=== PATIENT | male | born 1995 | race Hispanic/Latino ===

== ENCOUNTER 2017-10-26 23:23 | Emergency (ER) | payer BC, MEDICAID, SELFPAY ==
[2017-10-26 23:26] VITALS: BP 152/90; PULSE 111; RESP 16; TEMP 37.4; O2SAT 97; BMI 29.7
--- NOTE | 2017-10-26 23:43 | EKG12_ITS ---
Test Reason : HIGH BLOOD SUGAR Blood Pressure : / mmHG Vent. Rate : 087 BPM Atrial Rate : 087 BPM P-R Int : 120 ms QRS Dur : 080 ms QT Int : 330 ms P-R-T Axes : 047 059 025 degrees QTc Int : 397 ms Normal sinus rhythm Normal ECG Confirmed by MAICOL PIMENTEL ([id number]), newspaper editor ROBBIE NULL ([id number]) on 10/31/2017 1:54:13 PM Referred By: NITA Confirmed By:MAICOL PIMENTEL
[2017-10-26] MEDS: 0.9% Normal Saline 1,000 ML 1000 ML IV (23:58)
[2017-10-27 00:08] LABS: Bacteria 0 SEEN /hpf (None Seen); Mucous, Urine 0 SEEN /hpf (<or=2+); Red Blood Cells-Urine 0 SEEN /hpf (0-5); Squamous Epithelial Cells - UA 0 SEEN /hpf (0-5); White Blood Cells 0 SEEN /hpf (0-5)
[2017-10-27 00:10] LABS: Color, Urine Straw (Yellow); Glucose, Dipstick 1000 mg/dl (Normal); Ketone-Dipstick Negative (Negative); Leukocyte Esterase-Dipstick Negative /ul (Negative); Nitrite-Dipstick Negative (Negative); Occult Blood-Urine Negative /ul (Negative); Protein-Dipstick 15 mg/dl (Negative); Urine Bilirubin Dipstick Negative (Negative); Urine Clarity Clear (Clear); Urine Urobilinogen Normal (Normal); Urine pH 6.5 (5.0 - 8.0)
--- NOTE | 2017-10-27 00:14 | ED.DCSUM_ITS ---
- ER Visit Summary Date of Service: 10/27/17 Chief Complaint: Hyperglycemia History of Present Illness: The patient is a 22 M states that due to insurance reasons he is lost his prescription drug coverage. He has been trying to make his insulin stretch. Is not sure exactly what insulin he is taking or how much. States over the past 4 days had increased thirst and increased urination. He notes decreased energy. Feels lightheaded. His boss took his blood sugar tonight and it read high. No reported fevers. Physical Examination: Heart rate 111 respiratory rate is 26 pulse ox 97% room air temperature 99.3 blood pressure 152 over's 90 Gen: Well-nourished well-developed Head: Normocephalic atraumatic Eyes: Perrl EOMI ENT: TMs clear no rhinorrhea dry mucous membranes Neck: Supple no lymphadenopathy no JVD nontender CVS: Tachycardic regular rate rhythm no murmurs normal S1-S2 Respiratory: No distress clear to auscultation bilaterally chest nontender patient has a quiet tachypnea Abdomen: Soft nontender nondistended normal bowel sounds no masses Back: Nontender Extremity: Nontender no edema Skin: Normal color no rash Neuro: alert orientated ?3 CN II-XII intact normal strength sensation reflexes gait cerebellar Psych: Normal affect normal mood Test Results: EKG shows a sinus rhythm at a rate of 87. Glucose is 515. Ketones are negative. Venous blood gas shows pH is 7.46. Emergency Department Course and Treatment: Patient received IV fluids and 10 units of insulin IV. According to the [facility] plan NovoLog Mix 70/30 FlexPen is a preferred medicine. Patient states that he was told that this is not covered. I will leave a message for social service director to contact him in the morning to see there is anything further we could do. I will write a prescription for 1. He states he will be getting an upcoming appointment with a new doctor. I have previously referred him to JUANY kumar from endocrinology here in town. He never made that appointment due to a waiting list. Impression: 1. Diabetic hyperglycemia This note was generated with [employer] dictation software. It may contain incorrect words, spelling, and punctuation that were not noted in review of the chart prior to signing ED Disposition - Plan for ED Patient: Disposition: Home or Assisted Living Chief Complaint: Hyperglycemia Instructions: ED Hyperglycemia Diabetic Prescriptions: Insulin Human 70/30 [Novolog Mix 70-30 Flexpen Syrn] 30 units SC BIDCM #1 flexpen Referrals: NOT,DEFINED [NON-STAFF] - Marcelina Coyne, TRANSPORTATION LEAD-C [Nurse Practitioner] - Additional Instructions: I will leave a message for our social service director to contact you tomorrow.
[2017-10-27] MEDS: 0.9% Normal Saline 1,000 ML 1000 ML IV (00:18)
[2017-10-27 00:31] LABS: Blood Gas Specimen Type VEN; O2 Delivery Device Room Air; SITE L Brachial; Time Given 15; VBG BASE EXCESS 0 mmol/L (-1.0-3.5); VBG Bicarbonate 24 mmol/L (22-26); VBG Oxygen Content 26 mmol/L (23-33); VBG PO2 66 mmHg (25-40); VBG SO2 93 % (50-70); VBG pCO2 36.6 mmHg (41-51); VBG pH 7.43 (7.32-7.42)
[2017-10-27 00:35] LABS: Absolute Lymphocyte Count 2.62 X10^3/ul (0.83-4.51); Absolute Neutrophil Count 3.2 X10^3/uL (2.0-7.7); Basophil# 0.03 X10^3/uL; Basophil% 0.5 % (0-1); Hematocrit 50.5 % (40-54); Hemoglobin 18.1 g/dl (13.0-16.5); Lymphocyte # 2.62 X10^3/ul (4.0); Lymphocyte % 40.8 % (19-41); Mean Corp Hgb Conc 35.8 g/gl (32-36); Mean Corpuscular Hgb 31.2 pg (27.0-32.0); Mean Corpuscular Volume 86.9 fL (80-94); Mean Platelet Vol. 10.1 fl (6.2-12.0); Monocyte# 0.53 X10^3/uL; Monocyte% 8.3 % (0-10); Neutrophil # 3.23 X10^3/uL (2.7-7.7); Neutrophil % 50.2 % (47-70); Platelet Count 259 K/mm3 (150-450); RBC Distribution Width CV 12.2 % (11.6-14.6); RBC Distribution Width SD 38.2 fl (35.1-43.9); Red Blood Count 5.81 M/mm3 (4.6-6.2); White Blood Count 6.4 K/mm3 (4.4-11.0)
[2017-10-27 00:36] LABS: POSITIVE COUNT NO; POSITIVE DIFFERENTIAL NO; POSITIVE MORPHOLOGY NO
[2017-10-27 00:44] LABS: ALB/GLOB Ratio 1.4 RATIO (0.9-2.4); AST(SGOT) 26 U/L (15-37); Alanine Aminotransfer ALT/SGPT 84 U/L (16-61); Albumin, Serum 4.6 g/dL (3.2-5.0); Alkaline Phosphatase 110 U/L (45-117); Anion Gap 8 (5-15); BUN 20 mg/dL (7-18); BUN/Creat Ratio 15.7 RATIO (10-20); Calcium,Total 9.3 mg/dL (8.5-10.1); Chloride 97 mmol/L (98-107); Creatinine, Serum 1.27 mg/dL (0.70-1.30); EST Glomerular Filtration Rate 75 mL/min (>60); Est Glom Filt Rate - Afr Amer 90 mL/min (>60); Estimated Creatinine Clearance 81.63 ml/min; Globulin 3.4 g/dL (2.2-4.2); Glucose 515 mg/dL (74-106); Lactic Acid 1.9 mmol/L (0.4-2.0); Lipase 159 U/L (73-393); Magnesium 2.5 mg/dL (1.6-2.6); Sodium Level 134 mmol/L (136-145)
[2017-10-27 01:46] VITALS: PULSE 97; RESP 15; O2SAT 97
[2017-10-27 02:16] LABS: Bedside Glucose 143 mg/dL (70-110)
[2017-10-27 02:46] LABS: Bedside Glucose 126 mg/dL (70-110)
[2017-10-27 03:04] VITALS: PULSE 103; RESP 18
--- NOTE | 2017-10-27 11:48 | CM.ED ---
Call placed to patient on 10/27/17 to verify if patient was able to fill his Novolog prescription. Patient states he has not yet tried. Prescribed medication is a preferred drug for [facility]. I gave Patient my name/number and asked that he call me if he has any problems filling the medication. Patient states his has set him up with an endocrinology appt in [facility].
== END 2017-10-27 03:05 | disposition home or self-care (01) ==
PROVIDERS: Emergency Provider Emergency Medicine
DX: E10.65 Type 1 diabetes mellitus with hyperglycemia (principal); Z79.4 Long term (current) use of insulin; T38.3X6A Underdosing of insulin and oral hypoglycemic [antidiabetic] drugs, initial encounter; Z91.120 Patient's intentional underdosing of medication regimen due to financial hardship
CPT/HCPCS: 36600; 80053; 81001; 82009; 82803; 82962; 83605; 83690; 83735; 84484; 85025; 93005; 96360; 99282; J7030; A4216

== ENCOUNTER 2018-06-01 21:50 | Observation (INO) | payer MEDICAID, SELFPAY ==
[2018-06-01 21:52] VITALS: BP 135/87; PULSE 126; RESP 18; TEMP 37.3; O2SAT 97; BMI 21.9
--- NOTE | 2018-06-01 22:10 | CT_ITS ---
STUDY: CT ABDOMEN AND PELVIS WITHOUT CONTRAST REASON FOR EXAM: Male, 22 years old. History of right internal hernia. RADIATION DOSAGE (If Supplied By Facility): CTDIvol = ( 11.73 ) mGy, DLP = ( 671.39 ) mGycm TECHNIQUE: Transaxial images were obtained from the dome of the diaphragm to the symphysis pubis without oral contrast, and without intravenous contrast. Sagittal and coronal images were reconstructed. # of Images: 488 Individualized dose optimization techniques were used for this CT. COMPARISON: None. FINDINGS: The visualized lung bases are unremarkable. The visualized portions of the heart are within normal limits. There is diffuse fatty infiltration of the liver. The liver is borderline in size. The gallbladder is contracted. Normal spleen. Normal pancreas. Normal bilateral adrenal glands. Normal right kidney. Normal left kidney. The stomach is somewhat distended. The small bowel loops are normal in caliber. There is mild diverticulosis of the sigmoid colon but there is no evidence of acute diverticulitis. There is non-visualization of the appendix. Normal abdominal aorta. Normal inferior vena cava. Normal retroperitoneum. Normal urinary bladder. There is a right-sided inguinal hernia containing adipose tissue. There is a very small umbilical hernia containing fat. The osseous structures are essentially unremarkable. There is a small sclerotic lesion in the left superior pubic ramus probably due to bone island. CT/Abdomen/Pelvis without Cont IMPRESSION: 1. Fatty infiltration of the liver. 2. Right inguinal hernia containing fat. 3. Otherwise no demonstrated acute process. 4. Nonvisualization of the appendix. Electronically Signed: Prashant Main MD at 23:14 EDT Tel , Service support ,
[2018-06-01 22:37] VITALS: BP 116/70; PULSE 105; RESP 14; O2SAT 97
[2018-06-01] MEDS: Ketorolac 30 MG/ML Syringe IV (22:47)
[2018-06-01] MEDS: 0.9% Normal Saline 1,000 ML 1000 ML IV (22:47)
[2018-06-01 23:09] LABS: Bacteria 0 SEEN /hpf (None Seen); Mucous, Urine 0 SEEN /hpf (<or=2+); Red Blood Cells-Urine 0 SEEN /hpf (0-5); Squamous Epithelial Cells - UA 0 SEEN /hpf (0-5); White Blood Cells 0 SEEN /hpf (0-5)
[2018-06-01 23:26] LABS: Absolute Lymphocyte Count 3.48 X10^3/ul (0.83-4.51); Absolute Neutrophil Count 4.3 X10^3/uL (2.0-7.7); Basophil# 0.04 X10^3/uL; Basophil% 0.5 % (0-1); Hematocrit 48.6 % (40-54); Hemoglobin 17.7 g/dl (13.0-16.5); Lymphocyte # 3.48 X10^3/ul (4.0); Mean Corp Hgb Conc 36.4 g/gl (32-36); Mean Corpuscular Hgb 31.6 pg (27.0-32.0); Mean Corpuscular Volume 86.6 fL (80-94); Mean Platelet Vol. 10.6 fl (6.2-12.0); Monocyte# 0.91 X10^3/uL; Monocyte% 10.4 % (0-10); Neutrophil # 4.27 X10^3/uL (2.7-7.7); Platelet Count 273 K/mm3 (150-450); RBC Distribution Width CV 12.3 % (11.6-14.6); RBC Distribution Width SD 38.7 fl (35.1-43.9); Red Blood Count 5.61 M/mm3 (4.6-6.2); White Blood Count 8.7 K/mm3 (4.4-11.0)
[2018-06-01 23:29] LABS: POSITIVE COUNT NO; POSITIVE DIFFERENTIAL NO; POSITIVE MORPHOLOGY NO
[2018-06-01 23:31] LABS: Anion Gap 8 (5-15); BUN 20 mg/dL (7-18); BUN/Creat Ratio 7.9 RATIO (10-20); Calcium,Total 8.1 mg/dL (8.5-10.1); Chloride 99 mmol/L (98-107); Creatinine, Serum 2.52 mg/dL (0.70-1.30); EST Glomerular Filtration Rate 34 mL/min (>60); Est Glom Filt Rate - Afr Amer 41 mL/min (>60); Estimated Creatinine Clearance 39.78 ml/min; Glucose 449 mg/dL (74-106); Sodium Level 133 mmol/L (136-145)
[2018-06-01 23:41] LABS: Color, Urine Yellow (Yellow); Glucose, Dipstick 1000 mg/dl (Normal); Ketone-Dipstick 5 mg/dl (Negative); Leukocyte Esterase-Dipstick Negative /ul (Negative); Nitrite-Dipstick Negative (Negative); Occult Blood-Urine Negative /ul (Negative); Protein-Dipstick Negative (Negative); Specific Gravity, Urine 1.015 (1.002-1.030); Urine Bilirubin Dipstick Negative (Negative); Urine Clarity Clear (Clear); Urine Urobilinogen Normal (Normal)
--- NOTE | 2018-06-02 00:17 | ED.VISSUMM ---
- ER Visit Summary Date of Service: 06/02/18 Chief Complaint: Abdominal pain History of Present Illness: The patient is a 22 M who goes to the [facility]. He reports that he has pain in the right inguinal region that began 3 days ago. It was an intermittent pain. However, it has been constant for the past 2 hours. The sharp pains 10 out of 10 severity. Is worsened by walking relieved by nothing. Denies any nausea, vomiting, or diarrhea. His last bowel movement was today. He has had no melena or hematochezia. Reports she had dysuria for the past 2 hours. He has had frequent urination with large volumes. He denies any fever or chills. Physical Examination: Vitals: Stable. Afebrile. General: Well-nourished and well-developed. Head: Normocephalic atraumatic. Neck: Supple, no lymphadenopathy. No JVD. Nontender. Cardiovascular: Regular rate and rhythm. No murmurs. Respiratory: No respiratory distress. Clear to auscultation bilaterally. Abdominal: Soft, moderate tenderness palpation in the right inguinal region without palpable bowel, nondistended, normal bowel sounds. No guarding, rebound, or peritoneal signs. Back: Nontender. Extremities: Nontender, no edema. Skin: Normal color, no rash. Neurologic: Alert and oriented ?3. Cranial nerves II through XII are intact. Normal strength and sensation. Psych: Normal affect. Test Results: CBC is marked for hemoglobin 70.7 and monocytes of 10. Chem-7 is more for sodium 133, calcium of 8.1, glucose of 449, BUN of 20, creatinine 2.52. His glucose is range between 254-515 since 2017. His creatinine is range between 0.88-1.27 since 2017. UA is negative. Clinical Impression(s) from Imaging Studies Abdomen/Pelvis CT 06/01/18 22:10 IMPRESSION: 1. Fatty infiltration of the liver. 2. Right inguinal hernia containing fat. 3. Otherwise no demonstrated acute process. 4. Nonvisualization of the appendix. Electronically Signed: Prashant Main MD at 23:14 EDT Tel , Service support , Emergency Department Course and Treatment: Patient was given 2 L normal saline IV. He was given a dose of NovoLog subcu. Prior to his creatinine returning he received Toradol and Zofran IV. He is resting comfortably. Treatment Plan: Patient will be discussed with the hospitalist and admitted for further evaluation and treatment. Disposition: Admitted in improved condition. Impression: 1. Right inguinal hernia. 2. Hyperglycemia. 3. Acute renal insufficiency. 4. Diabetes mellitus, type II. This note was generated with [employer] dictation software. It may contain incorrect words, spelling, and punctuation that were not noted in review of the chart prior to signing ED Disposition - Plan for ED Patient: Chief Complaint: Abd Pain Prescriptions: Paroxetine HCl [Paxil] 20 mg PO DAILY #30 tab Referrals: Care Physician,No Primary [Primary Care Provider] -
--- NOTE | 2018-06-02 00:20 | ED.DCSUM_ITS ---
- ER Visit Summary Date of Service: 06/02/18 Chief Complaint: Abdominal pain History of Present Illness: The patient is a 22 M who goes to the [facility]. He reports that he has pain in the right inguinal region that began 3 days ago. It was an intermittent pain. However, it has been constant for the past 2 hours. The sharp pains 10 out of 10 severity. Is worsened by walking relieved by nothing. Denies any nausea, vomiting, or diarrhea. His last bowel movement was today. He has had no melena or hematochezia. Reports she had dysuria for the past 2 hours. He has had frequent urination with large volumes. He denies any fever or chills. Physical Examination: Vitals: Stable. Afebrile. General: Well-nourished and well-developed. Head: Normocephalic atraumatic. Neck: Supple, no lymphadenopathy. No JVD. Nontender. Cardiovascular: Regular rate and rhythm. No murmurs. Respiratory: No respiratory distress. Clear to auscultation bilaterally. Abdominal: Soft, moderate tenderness palpation in the right inguinal region without palpable bowel, nondistended, normal bowel sounds. No guarding, rebound, or peritoneal signs. Back: Nontender. Extremities: Nontender, no edema. Skin: Normal color, no rash. Neurologic: Alert and oriented ?3. Cranial nerves II through XII are intact. Normal strength and sensation. Psych: Normal affect. Test Results: CBC is marked for hemoglobin 70.7 and monocytes of 10. Chem-7 is more for sodium 133, calcium of 8.1, glucose of 449, BUN of 20, creatinine 2.52. His glucose is range between 254-515 since 2017. His creatinine is range between 0.88-1.27 since 2017. UA is negative. Clinical Impression(s) from Imaging Studies Abdomen/Pelvis CT 06/01/18 22:10 IMPRESSION: 1. Fatty infiltration of the liver. 2. Right inguinal hernia containing fat. 3. Otherwise no demonstrated acute process. 4. Nonvisualization of the appendix. Electronically Signed: Prashant Main MD at 23:14 EDT Tel , Service support , Emergency Department Course and Treatment: Patient was given 2 L normal saline IV. He was given a dose of NovoLog subcu. Prior to his creatinine returning he received Toradol and Zofran IV. He is resting comfortably. Treatment Plan: Patient will be discussed with the hospitalist and admitted for further evaluation and treatment. Disposition: Admitted in improved condition. Impression: 1. Right inguinal hernia. 2. Hyperglycemia. 3. Acute renal insufficiency. 4. Diabetes mellitus, type II. This note was generated with [employer] dictation software. It may contain incorrect words, spelling, and punctuation that were not noted in review of the chart prio r to signing ED Disposition - Plan for ED Patient: Chief Complaint: Abd Pain Prescriptions: Paroxetine HCl [Paxil] 20 mg PO DAILY #30 tab Referrals: Care Physician,No Primary [Primary Care Provider] -
--- NOTE | 2018-06-02 00:22 | HP.PCM_ITS ---
Problem List (1) CEE (acute kidney injury) Status: Acute (2) Acute hyperglycemia Status: Acute (3) Diabetes Status: Acute Qualifiers: Diabetes mellitus type: type 2 (4) Inguinal hernia Status: Acute (5) Depression with anxiety Status: Acute (6) Anxiety and depression Status: Acute History of Present Illness Date of Admission: 06/02/18 Chief Complaint: right inguinal pain The patient is a 22 year old M with a significant history of anxiety, depression, history of left inguinal hernia repair and with right inguinal hernia who presents with excruciating pain of his right inguinal area. He describes the pain as his right inguinal area as 10 out of 10. He described the quality of his pain as sharp. He denied any aggravating or ameliorating effect. However at emergency department he was given morphine to help with his pain. In regards to his depression and anxiety; patient reports that in the past, at around age 12-13 he attempted suicide x2. At this time he denies any suicidal ideations. His protective factors are his family. He reported that a day before his admission he hit 'the rock bottom' of his depression and anxiety. Emergency department doctor gave him a prescription for Paxil which upon discharge he can use. In regard to his diabetes mellitus patient reported that he takes Bydureon Bcise weekly every tuesday. He was on NovoLog but his NovoLog was discontinued because his blood glucose was within normal limits. He is on home glimepiride. He reports polyuria and polydipsia. He denies polyphagia or any change in his appetite.He reported that he has been lightheaded for about 1 week. 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 The emergency department blood glucose was found to be severely elevated. He had glucosuria and ketonuria. He has had multiple surgeries including [place] At emergency department was found to have severely elevated creatinine above his baseline. Before the BMP came back he had received Toradol. Among his home medication include meloxicam and gabapentein. His other medications are Prilosec, Zocor and glimepiride as mentioned above. Past Medical History Allergies No Known Allergies Allergy (Verified 06/01/18 21:56) Home Medications: Ambulatory Orders Medication Instructions Recorded Lorazepam [Ativan] 1 mg PO TID PRN #7 tablet 04/15/17 Exenatide Microspheres [Bydureon 2 mg SQ QWEEK 06/02/18 Bcise] Gabapentin [Neurontin] 300 mg PO BID 06/02/18 Glimepiride [Amaryl] 4 mg PO DAILY 06/02/18 Meloxicam 7.5 mg PO BID 06/02/18 Omeprazole 20 mg PO DAILY 06/02/18 Paroxetine HCl [Paxil] 20 mg PO DAILY #30 tab 06/02/18 Simvastatin [Zocor] 40 mg PO QHS 06/02/18 Surgical History: appendectomy, herniorrhaphy - Left inguinal hernia., - - 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 Psychiatric History: Anxiety, Depression Lives: With Family Smoking Status: Current some day smoker Tobacco Use: Cigarettes Alcohol: Occasional Drugs: None - *Family History Maternal History Items: Cancer - Bladder cancer of maternal grandfather Paternal History Items: Cancer - Stomach cancer of paternal grandfather Review of Systems Constitutional: Denies: Chills, Fever, Weight Change HEENT: Denies: Head Aches, Sinus Congestion, Sinus Drainage Cardiovascular: Denies: Chest Pain, Palpitations Respiratory: Denies: Cough, Shortness of breath at rest, Sputum production Gastrointestinal: Reports: Abdominal Pain - Right inguinal pain. Denies: Nausea, Vomiting Genitourinary: Reports: Frequency - Increased frequency. Denies: Dysuria Musculoskeletal: Denies: Joint Pain, Joint Tenderness Skin: Denies: Rash, Wounds Neurological: Denies: Numbness, Tingling, Focal weakness Psychiatric: Reports: Anxiety, Depression. Denies: Homicidal Ideations, Suicidal Ideations Endocrine: Reports: Polydipsia Hematologic/ Lymphatic: Denies: Easy Bruising, Easy Bleeding VTE Information - Inpt Only VTE Present on Admission: No VTE Mechan Device Prophylaxis: None VTE Pharm Prophylaxis ordered?: No Reason prophylaxis not ordered:: Treatment Not Indicated - Low risk Patient Problems: Active and Suspected Problems (This Medical Record has been edited. Action required.) CEE (acute kidney injury) (Acute) Acute hyperglycemia (Acute) Diabetes (Acute) Inguinal hernia (Acute) Depression with anxiety (Acute) Anxiety and depression (Acute) - Physical Exam General: Alert, Oriented x3, Cooperative HEENT: Atraumatic, PERRLA, EOMI, Normocephalic Neck: Supple, No JVD, Negative Carotid Bruits Lungs: Clear to auscultation, Normal air movement Cardiovascular: Regular rate, No murmurs Abdomen: Bowel Sounds Present, Soft, Tender - Mild tenderness of right inguinal area. Extremities: No edema, Capillary Refill Less than 3 Seconds Skin: No rashes, No breakdown Musculoskeletal: No Tenderness to Palpation of Joints or Extremities Neurological: Cranial nerves II-XII grossly intact Psych/Mental Status: Normal Affect, Appropriate Vital Signs Temp Pulse Resp BP Pulse Ox 99.2 F H 105 H 14 116/70 97 06/01/18 21:52 06/01/18 22:37 06/01/18 22:37 06/01/18 22:37 06/01/18 22:37 Oxygen Delivery Method Room Air Weight: 61.689 kg Body Mass Index (BMI) 21.9 Finger Stick Blood Glucose 303 Laboratory Tests Past 24 Hrs 06/01/18 06/01/18 06/01/18 22:25 22:25 23:05 WBC 8.7 RBC 5.61 Hgb 17.7 H Hct 48.6 MCV 86.6 MCH 31.6 MCHC 36.4 H RDW 12.3 RDW Differential 38.7 Plt Count 273 MPV 10.6 Immature Gran % (Auto) 0.100 Neut % (Auto) 49.0 Lymph % (Auto) 40.0 [place] % (Auto) 10.4 H Eos % (Auto) 0.0 Baso % (Auto) 0.5 Absolute Neuts (auto) 4.3 Absolute Lymphs (auto) 3.48 Total Counted Not Reportable Sodium 133 L Potassium 4.0 Chloride 99 Carbon Dioxide 26.0 Anion Gap 8 BUN 20 H Creatinine 2.52 H Estim Creat Clear Calc 39.78 Est GFR (MDRD) Af Amer 41 L Est GFR (MDRD) Non-Af 34 L BUN/Creatinine Ratio 7.9 L Glucose 449 H Calcium 8.1 L Urine Color Yellow Urine Clarity Clear Urine pH 6.0 Ur Specific Clifford 1.015 Urine Protein Negative Urine Glucose (UA) 1000 H Urine Ketones 5 H Urine Occult Blood Negative Urine Nitrite Negative Urine Bilirubin Negative Urine Urobilinogen Normal Ur Leukocyte Esterase Negative Urine RBC 0 SEEN Urine WBC 0 SEEN Ur Squamous Epith Cells 0 SEEN Urine Bacteria 0 SEEN Urine Mucus 0 SEEN Assessment/Plan All Active Problems (This Medical Record has been edited. Action required.) CEE (acute kidney injury) (Acute) Acute hyperglycemia (Acute) Diabetes (Acute) Inguinal hernia (Acute) Depression with anxiety (Acute) Anxiety and depression (Acute) The patient is a 22 year old M with a significant history of anxiety, depression, history of left inguinal hernia repair and with right inguinal hernia who presents with excruciating pain of his right inguinal area; worsening depression and anxiety and found to have acute hyperglycemia and about a double rise in his creatinine. Acute hyperglycemia Patient was found to have blood glucose of 449 on Chem-7; and with a pseudo- hyponatremia because of his hyperglycemia. Patient noted to have ketones in his urine but with normal bicarbonate and normal anion gap. It appears patient is not in DKA Osmolality ordered to rule out HHNK. We will start patient on Lantus 0.2 units/kg which is approximately 12 units daily. We will do frequent blood glucose check of every 4 hours and apply correction scale. Received normal saline the emergency department. Normal saline IV infusion with 40meq of potassium ordered. Calorie controlled diet with no concentrated glucose. Consider discussing with patient outpatient plant protection supervisor on hypoglycemic medication on discharge. Will hold glimepiride for now. Bydureon that patient takes every week on Saturdays not started at this time. Pseudohyponatremia Sodium 133 on admission Blood glucose 499. Corrected sodium 139. Monitor BMP. Hypocalcemia Calcium 8.1 Albumin level ordered. Depression and anxiety Paxil prescription was issued by the ED doctor to patient for outpatient use after discharge. Paxil ordered while inpatient. Ativan as needed ordered. CEE On admission patient creatinine was 2.57 Baseline creatinine is about 1.2. This implied that his creatinine on admission is more than doubled compared to baseline. Likely due to dehydration from osmotic diuresis. Received fluid hydration in the emergency department. Maintenance normal saline IV hydration continued. Avoid nephrotoxins. Inguinal hernia Right inguinal hernia containing fat with no bowel incarcerated. Likely no acute intervention at this time. Due to patient complaint of pain in same location will consult surgery at least for patient to establish care with a surgeon. DVT prophylaxis Low risk. Ambulation. Code Visit OBSV E&M: 43148 Initial observation care L3
[2018-06-02] MEDS: Insulin Lispro 100 UNIT/ML INSULN.PEN 10 UNIT SC (01:03)
[2018-06-02] MEDS: 0.9% Normal Saline 1,000 ML 999 ML IV (01:04)
[2018-06-02 01:05] VITALS: BP 133/85; PULSE 97; RESP 16; O2SAT 97
[2018-06-02 01:28] VITALS: BMI 29.0
[2018-06-02 01:54] VITALS: BMI 29.0
[2018-06-02 02:08] VITALS: BP 120/73; PULSE 76; RESP 16; TEMP 36.8; O2SAT 98
[2018-06-02 02:56] LABS: Bedside Glucose 339 mg/dL (70-110)
[2018-06-02] MEDS: LORazepam 1 MG Tablet PO (03:06)
[2018-06-02] MEDS: Insulin Lispro 100 UNIT/ML INSULN.PEN SQ ×2 (03:07→07:23)
[2018-06-02] MEDS: 0.9% Normal Saline 1,000 ML 150 ML IV (03:08)
[2018-06-02 05:34] LABS: Osmolality, Serum 305 mOsm/KG (275-295)
[2018-06-02] MEDS: Potassium Chloride 40 MEQ in 0.9% Normal Saline 1,000 ML 150 MEQ IV (05:50)
[2018-06-02 07:00] VITALS: O2SAT 94
[2018-06-02 07:21] LABS: Bedside Glucose 305 mg/dL (70-110)
[2018-06-02 07:38] LABS: Albumin, Serum 3.3 g/dL (3.2-5.0); Anion Gap 6 (5-15); BUN 23 mg/dL (7-18); BUN/Creat Ratio 21.1 RATIO (10-20); Calcium,Total 7.7 mg/dL (8.5-10.1); Chloride 107 mmol/L (98-107); Creatinine, Serum 1.09 mg/dL (0.70-1.30); EST Glomerular Filtration Rate 89 mL/min (>60); Est Glom Filt Rate - Afr Amer 107 mL/min (>60); Estimated Creatinine Clearance 95.11 ml/min; Glucose 265 mg/dL (74-106); Potassium 3.5 mmol/L (3.5-5.1); Sodium Level 139 mmol/L (136-145)
[2018-06-02 07:40] LABS: Absolute Lymphocyte Count 3.66 X10^3/ul (0.83-4.51); Basophil# 0.04 X10^3/uL; Basophil% 0.5 % (0-1); Hematocrit 43.1 % (40-54); Hemoglobin 15.6 g/dl (13.0-16.5); Lymphocyte # 3.66 X10^3/ul (4.0); Lymphocyte % 43.7 % (19-41); Mean Corp Hgb Conc 36.2 g/gl (32-36); Mean Corpuscular Hgb 31.1 pg (27.0-32.0); Mean Corpuscular Volume 85.9 fL (80-94); Mean Platelet Vol. 10.1 fl (6.2-12.0); Monocyte% 8.4 % (0-10); Neutrophil # 3.95 X10^3/uL (2.7-7.7); Neutrophil % 47.2 % (47-70); POSITIVE COUNT NO; POSITIVE DIFFERENTIAL NO; POSITIVE MORPHOLOGY NO; Platelet Count 264 K/mm3 (150-450); RBC Distribution Width CV 12.1 % (11.6-14.6); RBC Distribution Width SD 37.4 fl (35.1-43.9); Red Blood Count 5.02 M/mm3 (4.6-6.2); White Blood Count 8.4 K/mm3 (4.4-11.0)
--- NOTE | 2018-06-02 07:44 | PCM.CONS.GEN ---
Problem List (1) Right inguinal hernia Status: Acute Reason for Consult Date of Consultation: 06/02/18 History of Present Illness: The patient is a 22 year old M who was admitted to the hospital with elevated blood sugars. Patient had been complaining of some right groin pain has a known right inguinal hernia that he has had for approximately 5 years. Occasionally it will get stuck out and he has to massage it back in. Patient has had a left inguinal hernia repair when he was 12 years old. His blood sugars this morning are above 300. He is not complaining of any groin pain this morning. Past Medical History Allergies No Known Allergies Allergy (Verified 06/01/18 21:56) Home Medications: Ambulatory Orders Medication Instructions Recorded Lorazepam [Ativan] 1 mg PO TID PRN #7 tablet 04/15/17 Exenatide Microspheres [Bydureon 2 mg SQ QWEEK 06/02/18 Bcise] Gabapentin [Neurontin] 300 mg PO BID 06/02/18 Glimepiride [Amaryl] 4 mg PO DAILY 06/02/18 Meloxicam 7.5 mg PO BID 06/02/18 Omeprazole 20 mg PO DAILY 06/02/18 Paroxetine HCl [Paxil] 20 mg PO DAILY #30 tab 06/02/18 Simvastatin [Zocor] 40 mg PO QHS 06/02/18 Surgical History: appendectomy, herniorrhaphy - Left inguinal hernia., - - 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 Psychiatric History: Anxiety, Depression Lives: With Family Smoking Status: Current some day smoker Tobacco Use: Cigarettes Alcohol: Occasional Drugs: None - *Family History Maternal History Items: Cancer - Bladder cancer of maternal grandfather Paternal History Items: Cancer - Stomach cancer of paternal grandfather Review of Systems Constitutional: Reports: Weakness Cardiovascular: Denies: Chest Pain, Chest Pressure, Chest Tightness, Palpitations Respiratory: Denies: Cough, Hemoptysis, Shortness of breath at rest, Shortness of breath upon exertion, Wheezing Gastrointestinal: Reports: Abdominal Pain - Lower abdominal pain in the right side mostly particularly when his hernia is out Genitourinary: Reports: Frequency - He is complaining of polydipsia and polyuria Endocrine: Reports: Polydipsia, Polyuria Patient Problems: Active and Suspected Problems (This Medical Record has been edited. Action required.) CEE (acute kidney injury) (Acute) Acute hyperglycemia (Acute) Diabetes (Acute) Inguinal hernia (Acute) Depression with anxiety (Acute) Anxiety and depression (Acute) Right inguinal hernia (Acute) - Physical Exam General: Alert, Oriented x3 Abdomen: Bowel Sounds Present, Soft, Non Tender, Non-Distended, Hernia - Patient has reducible right internal hernia. Left side appears to be stable at this time. He has no rebound guarding or peritoneal signs identified. Vital Signs Temp Pulse Resp BP Pulse Ox 98.3 F 76 16 120/73 98 06/02/18 02:08 06/02/18 02:08 06/02/18 02:08 06/02/18 02:08 06/02/18 02:08 Oxygen Delivery Method Room Air Weight: 179 lb 10.828 oz Body Mass Index (BMI) 29.0 Finger Stick Blood Glucose 303 Intake and Output for Last 24 Hours 05/31/18 06/01/18 06/02/18 23:59 23:59 23:59 Intake Total 1094 / 1094 Balance 1094 / 1094 Laboratory Tests Past 24 Hrs 06/01/18 06/01/18 06/01/18 22:25 22:25 23:05 WBC 8.7 RBC 5.61 Hgb 17.7 H Hct 48.6 MCV 86.6 MCH 31.6 MCHC 36.4 H RDW 12.3 RDW Differential 38.7 Plt Count 273 MPV 10.6 Immature Gran % (Auto) 0.100 Neut % (Auto) 49.0 Lymph % (Auto) 40.0 Carter % (Auto) 10.4 H Eos % (Auto) 0.0 Baso % (Auto) 0.5 Absolute Neuts (auto) 4.3 Absolute Lymphs (auto) 3.48 Total Counted Not Reportable Sodium 133 L Potassium 4.0 Chloride 99 Carbon Dioxide 26.0 Anion Gap 8 BUN 20 H Creatinine 2.52 H Estim Creat Clear Calc 39.78 Est GFR (MDRD) Af Amer 41 L Est GFR (MDRD) Non-Af 34 L BUN/Creatinine Ratio 7.9 L Glucose 449 H Serum Osmolality Calcium 8.1 L Albumin Urine Color Yellow Urine Clarity Clear Urine pH 6.0 Ur Specific [place] 1.015 Urine Protein Negative Urine Glucose (UA) 1000 H Urine Ketones 5 H Urine Occult Blood Negative Urine Nitrite Negative Urine Bilirubin Negative Urine Urobilinogen Normal Ur Leukocyte Esterase Negative Urine RBC 0 SEEN Urine WBC 0 SEEN Ur Squamous Epith Cells 0 SEEN Urine Bacteria 0 SEEN Urine Mucus 0 SEEN 06/02/18 06/02/18 06/02/18 03:06 06:57 06:57 WBC 8.4 RBC 5.02 Hgb 15.6 Hct 43.1 MCV 85.9 MCH 31.1 MCHC 36.2 H RDW 12.1 RDW Differential 37.4 Plt Count 264 MPV 10.1 Immature Gran % (Auto) 0.200 Neut % (Auto) 47.2 Lymph % (Auto) 43.7 H Carter % (Auto) 8.4 Eos % (Auto) 0.0 Baso % (Auto) 0.5 Absolute Neuts (auto) 4.0 Absolute Lymphs (auto) 3.66 Total Counted Not Reportable Sodium 139 Potassium 3.5 Chloride 107 Carbon Dioxide 26.0 Anion Gap 6 BUN 23 H Creatinine 1.09 Estim Creat Clear Calc 95.11 Est GFR (MDRD) Af Amer 107 Est GFR (MDRD) Non-Af 89 BUN/Creatinine Ratio 21.1 H Glucose 265 H Serum Osmolality 305 H Calcium 7.7 L Albumin 3.3 Urine Color Urine Clarity Urine pH Ur Specific [place] Urine Protein Urine Glucose (UA) Urine Ketones Urine Occult Blood Urine Nitrite Urine Bilirubin Urine Urobilinogen Ur Leukocyte Esterase Urine RBC Urine WBC Ur Squamous Epith Cells Urine Bacteria Urine Mucus POC Glucose 06/02/18 06/02/18 07:16 02:49 POC Glucose 305 H 339 H Assessment/Plan All Active Problems (This Medical Record has been edited. Action required.) CEE (acute kidney injury) (Acute) Acute hyperglycemia (Acute) Diabetes (Acute) Inguinal hernia (Acute) Depression with anxiety (Acute) Anxiety and depression (Acute) Right inguinal hernia (Acute) Patient will need to have a laparoscopic right inguinal hernia repair done when his blood sugars are better controlled. At that time the patient is also interested in having a vasectomy and when I see him back in the office in probably 2-3 weeks get him scheduled for surgery we will discuss a vasectomy at the same time as his laparoscopic inguinal hernia repair. I will see the patient back in the office 1 week after he is discharged.
[2018-06-02 07:52] VITALS: BP 123/75; PULSE 80; RESP 16; TEMP 37; O2SAT 100
--- NOTE | 2018-06-02 11:22 | CASEMGMT ---
As per H&P, pt has a history of anxiety and depression, and hit rock bottom. SW met w/pt in regard to mental health. Pt reports feeling better today, was in a dark place yesterday. SW asked pt if he is in counseling, he states no, states he does not like to talk about his problems. He states however that now it's time to start talking about it however. Pt states has never been in counseling in the past. Pt denies being suicidal or homicidal. Pt states he tried two times to kill himself when he was younger. Pt states it did not work, and that God must have a purpose for me. Pt reports to have a supportive , and two young children. Pt states he has a beautiful life. Pt does have a diagnosis of diabetes, diagnosed last year. This adds to pt's stress. SW brought in for pt a list of places for counseling. Pt states he called yesterday and has an appointment today at [facility] at 1pm. Pt states he does not think he will make it there in time however. SW gave pt a list of counseling agencies in the area, and circled [facility]. Pt states will call to reschedule the appointment if he does not get there in time. SW explained that [facility] does have a 24 hour hotline he can call if needed. Pt states understanding. No further social service needs are anticipated, SW gave pt list of counseling resources and pt plans to call to reschedule [facility] appointment he had for today at 1pm. SW remains available for any additional social service needs. AMBROSE Perez, [employer] DEVELOPER
--- NOTE | 2018-06-02 11:31 | DCINST_ITS ---
- Discharge Diagnoses Current Active Problems: Current Active and Chronic Problems (This Medical Record has been edited. Action required.) CEE (acute kidney injury) (Acute) Acute hyperglycemia (Acute) Diabetes (Acute) Inguinal hernia (Acute) Depression with anxiety (Acute) Anxiety and depression (Acute) Right inguinal hernia (Acute) You will use the following diet at home:: Calorie/Carbohydrate Controlled (specify 1200, 1400, etc) - 2200 daniel ADA Your food should be the consistency of: Regular Your liquids should be the consistency of: Regular/Thin Discharge Activity: Return to Normal Activity Weight Bearing Status: Full weight bearing Allergies/Adverse Reactions: Allergies No Known Allergies Allergy (Verified 06/01/18 21:56) Medications to take at Discharge Insulin Glargine,Hum.rec.anlog [Basaglar Kwikpen U-100] 20 unit SQ QHS #5 insuln.pen 06/02/18 Insulin Lispro [Humalog Kwikpen U-100] 10 unit SQ TIDCM #5 insuln.pen 06/02/18 Omeprazole 20 mg PO DAILY 06/02/18 Paroxetine HCl [Paxil] 20 mg PO DAILY tablet 06/02/18 Paroxetine HCl [Paxil] 20 mg PO DAILY #30 tab 06/02/18 Simvastatin [Zocor] 40 mg PO QHS 06/02/18 The following prescriptions were given: Insulin Glargine,Hum.rec.anlog [Basaglar Kwikpen U-100] 20 unit SQ QHS #5 insuln.pen Paroxetine HCl [Paxil] 20 mg PO DAILY #30 tab Insulin Lispro [Humalog Kwikpen U-100] 10 unit SQ TIDCM #5 insuln.pen Primary Care Physician: Care Physician,No Primary [Primary Care Provider] - Please follow up with your Primary Care Physician in: next week Test Results: Test results from this visit will be discussed in further detail at your follow- up appointment, if applicable. Please Follow Up With: jozef christiansen
[2018-06-02 12:10] LABS: Bedside Glucose 334 mg/dL (70-110)
--- NOTE | 2018-06-04 09:01 | DS.PCM_ITS ---
Discharge Date and Diagnosis Date of Admission: 06/02/18 Date of Discharge: 06/02/18 - Primary Discharge Diagnosis #1 acute kidney injury #2 type 1 diabetes-uncontrolled #3 abdominal pain-secondary to right inguinal hernia #4 right inguinal hernia Hospital Course and Treatment Operations: None Procedures: None Summary of Care Provided: The patient is a 22 year old M in the emergency room at [facility] with chief complaint of right inguinal region abdominal pain. Workup in the emergency room included a CBC which showed no elevation of his white blood cell count, chemistry profile showed a glucose of 449, BUN of 20, creatinine of 2.52. CT of the abdomen was obtained which showed fatty infiltration of the liver and a right inguinal hernia. Patient was admitted to [place] [id number], blood sugars were monitored and patient was given insulin as needed for blood sugar control. He was seen in consultation by general surgery, patient's abdominal pain resolved and he wished to be discharged home and I felt he was in stable condition to be discharged. I had a long discussion with him about his type 1 diabetes, he was set up to see JUANY Coyne as an outpatient for his diabetes. Physical exam: On examination he appeared in good health and spirits. Vital signs as documented. Skin warm and dry and without overt rashes. Neck without JVD. Lungs clear. Heart exam notable for regular rhythm, normal sounds and absence of murmurs, rubs or gallops. Abdomen unremarkable and without evidence of organomegaly, masses, or abdominal aortic enlargement. Extremities nonedematous. Neuro: Cranial nerves II through XII are grossly intact, no focal motor deficits were noted, sensation was intact to light touch and pain. Psych: Patient was alert and oriented x3, he did not appear to be anxious. On 06/02/18, patient was seen and examined and felt to be stable for discharge home. He was to follow-up with Dr. Tinoco as an outpatient regarding his inguinal hernia. - Physical Exam Vital Signs Temp Pulse Resp BP Pulse Ox 98.6 F 80 16 123/75 H 100 06/02/18 07:52 06/02/18 07:52 06/02/18 07:52 06/02/18 07:52 06/02/18 07:52 Oxygen Delivery Method Room Air Weight: 81.5 kg Body Mass Index (BMI) 29.0 Finger Stick Blood Glucose 303 Intake and Output for Last 24 Hours 06/02/18 06/03/18 06/04/18 23:59 23:59 23:59 Intake Total 1094 / 1094 Balance 1094 / 1094 Discharge Activity: Return to Normal Activity Weight Bearing Status: Full weight bearing Home Medications: Medications to take at Discharge Insulin Glargine,Hum.rec.anlog [Basaglar Kwikpen U-100] 20 unit SQ QHS #5 insuln.pen 06/02/18 Insulin Lispro [Humalog Kwikpen U-100] 10 unit SQ TIDCM #5 insuln.pen 06/02/18 Omeprazole 20 mg PO DAILY 06/02/18 Paroxetine HCl [Paxil] 20 mg PO DAILY tablet 06/02/18 Paroxetine HCl [Paxil] 20 mg PO DAILY #30 tab 06/02/18 Simvastatin [Zocor] 40 mg PO QHS 06/02/18 Following Prescrptions Were Given to Patient: Insulin Glargine,Hum.rec.anlog [Basaglar Kwikpen U-100] 20 unit SQ QHS #5 insuln.pen Paroxetine HCl [Paxil] 20 mg PO DAILY #30 tab Insulin Lispro [Humalog Kwikpen U-100] 10 unit SQ TIDCM #5 insuln.pen Primary Care Physician: Care Physician,No Primary [Primary Care Provider] - Please follow up with your Primary Care Physician in: next week Please Follow Up With: juany coyne Disposition: Home Minutes spent on discharge:: 30 Patient Condition:: Stable Medical Necessity - Tobacco Use Smoking Status: Current some day smoker Tobacco Use: Cigarettes Meaningful Use Info Meaningful Use Diagnoses (Choose all that apply): None applicable Code Visit OBSV E&M: 38107 Observ/hosp same date L3
== END 2018-06-02 12:18 | disposition home or self-care (01) ==
LOC: ED 22:14 → MS3 06-02 00:44
PROVIDERS: Admitting Provider Hospitalist; Emergency Provider Emergency Medicine; Visit Provider Internal Medicine
DX: N17.9 Acute kidney failure, unspecified (principal); K40.90 Unilateral inguinal hernia, without obstruction or gangrene, not specified as recurrent; E10.65 Type 1 diabetes mellitus with hyperglycemia; K76.0 Fatty (change of) liver, not elsewhere classified; F17.210 Nicotine dependence, cigarettes, uncomplicated; Z79.899 Other long term (current) drug therapy; R35.0 Frequency of micturition; F41.8 Other specified anxiety disorders
CPT/HCPCS: 36415; 74176; 80048; 81001; 82040; 82962; 83930; 85025; 96361; 96374; 97802; 99218; 99282; J7030; A4216; G0378

== ENCOUNTER → 2018-07-03 12:34 | Outpatient (CLI) | payer MEDICAID, SELFPAY ==
[2018-07-05 19:23] LABS: C-Peptide 5.6 ng/mL (1.1-4.4)
== END ==
PROVIDERS: Referring Provider Nurse Practitioner; Visit Provider Nurse Practitioner
DX: E10.65 Type 1 diabetes mellitus with hyperglycemia (principal)
CPT/HCPCS: 36415; 84681

== ENCOUNTER → 2018-07-24 08:04 | Outpatient (CLI) | payer MEDICAID, SELFPAY ==
[2018-07-18 08:04] VITALS: BMI 29.5
[2018-07-24 09:32] LABS: Hemoglobin A1c 8.1 % (4.2-6.3)
== END ==
PROVIDERS: Referring Provider Nurse Practitioner; Visit Provider Nurse Practitioner
DX: E11.65 Type 2 diabetes mellitus with hyperglycemia (principal)
CPT/HCPCS: 36415; 83036

== ENCOUNTER 2018-08-24 08:15 | Emergency (ER) | payer MEDICAID, SELFPAY ==
[2018-08-24 08:16] VITALS: BP 124/90; PULSE 98; RESP 18; TEMP 36.6; O2SAT 99; BMI 28.3
[2018-08-24 08:20] VITALS: TEMP 36.6
--- NOTE | 2018-08-24 08:30 | ED.VISSUMM ---
- ER Visit Summary Date of Service: 08/24/18 Chief Complaint: Pain History of Present Illness: The patient is a 22 M with dental pain that started yesterday and was worse today. The pain is in his right mandibular third molar and he noted some swelling to the area. He never had this before. No other associated symptoms. Physical Examination: Vitals unremarkable. Patient has tenderness to palpation and swelling in his right third mandibular molar. No abscess. Mild trismus. No tongue elevation. No lymphadenopathy. Skin appears normal. No meningeal signs. Test Results: None indicated Emergency Department Course and Treatment: Patient received naproxen, [place], and Pen-Vee K here. He received a prescription for naproxen and Pen-Vee K. He was referred to dental for follow-up. Treatment Plan: Above Disposition: Discharge Impression: 1. Right mandibular pericoronitis/dental pain This note was generated with [employer] dictation software. It may contain incorrect words, spelling, and punctuation that were not noted in review of the chart prior to signing ED Disposition - Plan for ED Patient: Chief Complaint: Dental Referrals: Care Physician,No Primary [Primary Care Provider] -
--- NOTE | 2018-08-24 08:32 | ED.DEP ---
ED Disposition - Plan for ED Patient: Chief Complaint: Dental Instructions: ED Tooth Pain Prescriptions: Naproxen [Naprosyn] 500 mg PO BID PRN #20 tab Penicillin V Potassium 500 mg PO 4X/DAY #40 tab Additional Instructions: follow up with dental
[2018-08-24] MEDS: HYDROcodone Bitartrate/Apap 5/325 Tablet PO (08:36)
[2018-08-24] MEDS: Penicillin Vk 250 MG Tablet 500 MG PO (08:36)
[2018-08-24] MEDS: Naproxen 500 MG Tablet PO (08:36)
== END 2018-08-24 08:48 | disposition home or self-care (01) ==
PROVIDERS: Emergency Provider Emergency Medicine
DX: K05.319 Chronic periodontitis, localized, unspecified severity (principal); K08.89 Other specified disorders of teeth and supporting structures
CPT/HCPCS: 99283

== ENCOUNTER 2019-09-12 16:27 | Emergency (ER) | payer MEDICAID, SELFPAY ==
[2018-09-21 08:13] VITALS: BMI 30.8
[2019-09-12 16:28] VITALS: BP 136/69; PULSE 84; RESP 16; TEMP 36.8; O2SAT 98; BMI 25.7
--- NOTE | 2019-09-12 16:48 | ED.RN ---
PT GIVEN 2 OJ'S, HAM AND GUAMANIAN SANDWICH, PEANUTBUTTER AND TOBY CRACKERS. PT STATES THANK YOU SO MUCH, YOU GUYS ALWAYS TAKE GREAT CARE OF ME, I DON'T KNOW WHY PEOPLE TALK SO MUCH CRAP ABOUT YOU COLETTE.
[2019-09-12 17:31] LABS: Bedside Glucose 131 mg/dL (70-110)
--- NOTE | 2019-09-12 17:37 | ED.VIS.GEN ---
History of Present Illness Chief Complaint: Hypoglycemia Narrative: Arrives via EMS with a hypoglycemic episode. He tells me that he was at work today and had a [employer] sandwich. He then had diarrhea while washing his hands began to feel poorly. He states he felt like he may pass out. He was able to get to his coworkers and they gave him candy and pop. Blood sugar then was 70 and upon EMS arrival had risen above 100. Patient states he feels pretty good right now. Patient states that he has had similar episodes when his blood sugar has dropped. No chest pain shortness of breath. 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 Smoking Status: Never smoker - Family History Maternal Family History: Family History (Last Reviewed 09/21/18 @ 08:11 by Aster Rivero) Other Cancer Heart disease Seizures Family History: Reports: Cancer - Bladder cancer of maternal grandfather Paternal Family History: Family History (Last Reviewed 09/21/18 @ 08:11 by Aster Rivero) Other Cancer Heart disease Seizures Family History: Reports: Cancer - Stomach cancer of paternal grandfather Review of Systems General: Denies: Chills, Fever, Sweats Eyes: Denies: Visual changes - bilaterally, Diplopia ENT: Denies: Rhinorrhea, Sore throat Cardiovascular: Denies: Chest pain, Palpitations Respiratory: Denies: Dyspnea, Cough, Dyspnea on exertion Gastrointestinal: Reports: Diarrhea. Denies: Abdominal pain, Nausea, Vomiting, Melena, Hematochezia Genitourinary: Denies: Dysuria, Hematuria, Frequency Musculoskeletal: Denies: Back pain, Extremity Pain Skin: Denies: Rash, Wounds Neurological: Denies: Headache, Weakness, Numbness Physical Exam Vital Signs/Narrative: Vital Signs Temp Pulse Resp BP Pulse Ox 09/12/19 16:28 98.2 F 84 16 136/69 H 98 Inital Vital Signs reviewed: Yes General: Well nourished, Well developed, No Acute Distress Head: Normocephalic, Atraumatic Eyes: Perrl, EOMI ENT: Moist mucous membranes, No rhinorrhea Neck: Supple, Nontender Cardiovascular: Regular rate, Regular rhythm, No murmurs Respiratory: No distress, CTA bilaterally, Chest nontender Abdomen: Soft, Nontender, Nondistended, Normal bowel sounds Back: Nontender, Normal Inspection Extremities: Nontender, No edema Skin: Normal color, No rash Neurological: Alert, Oriented x3, Cranial nerves II-XII grossly intact, Normal Strength, Normal Sensation Psychological: Normal affect, Normal Mood Diagnostic/Tx/Re-eval - Medical Decision Making This could have been a hypoglycemic reaction however could have also been a vasovagal episode after he had explosive diarrhea. In either case the patient is feeling better. His blood sugar has remained stable. He will be discharged. ED Disposition - Plan for ED Patient: Disposition: Home or Assisted Living Diagnosis: Hypoglycemia Instructions: Hypoglycemia (Low Blood Sugar) Additional Instructions: Please follow-up with her doctors return if worsening or concerns. Imodium as needed for diarrhea Please monitor your blood sugar every couple hours this evening.
[2019-09-12 17:51] VITALS: BP 131/85
== END 2019-09-12 17:51 | disposition home or self-care (01) ==
PROVIDERS: Emergency Provider Emergency Medicine
DX: E16.2 Hypoglycemia, unspecified (principal)
CPT/HCPCS: 82962; 99284

== ENCOUNTER 2023-07-02 10:40 | Emergency (ER) | payer OTHER, MEDICAID, SELFPAY ==
[2023-07-02 10:41] VITALS: BP 131/85; PULSE 71; RESP 14; TEMP 36.2; O2SAT 98; BMI 25.0
[2023-07-02] MEDS: Fluorescein 1 MG STRIP 1 STRIP LEFT EYE (11:16)
--- NOTE | 2023-07-02 11:35 | EDS_ITS ---
HPI History of Present Illness Chief Complaint: Eye Problem Informant: patient Narrative Narrative: Patient had a work-related injury yesterday. 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 He was cooking with his glasses on, and there was splattering oil that was hot, and a drop of its bladder into his left eye despite having his glasses on. He had pain immediately, he went to the eyewash station and irrigated profusely immediately. He still is having discomfort especially when in the sun/light, but no changes in his vision. He denies having pain in the eye, more like just irritated. [facility] Medical History Type 2 diabetes mellitus Home Medications paroxetine HCl 20 mg tablet 20 mg PO DAILY 06/02/18 [Rx Last Taken Unknown] ergocalciferol (vitamin D2) 1,250 mcg (50,000 unit) capsule (Drisdol) 50,000 unit PO QWEEK #4 caps 07/03/18 [Rx Last Taken Unknown] insulin glargine 100 unit/mL (3 mL) subcutaneous pen 20 unit (0.2 mL) subcut QHS #15 mL 07/03/18 [Rx Last Taken Unknown] insulin lispro 100 unit/mL subcutaneous pen 10 unit (0.1 mL) subcut TIDCM #15 mL 07/03/18 [Rx Last Taken Unknown] omeprazole 20 mg capsule,delayed release 20 mg PO DAILY gerd #30 caps 07/03/18 [Rx Last Taken Unknown] pen needle, diabetic 32 gauge x 3/16 (Comfort EZ Pen [place]) #150 ea 07/03/18 [Rx Last Taken Unknown] blood sugar diagnostic (True Metrix Glucose Test Strip) #150 ea 07/18/18 [Rx Last Taken Unknown] FreeStyle Estrella 14 Day Sensor (flash glucose sensor) #1 ea 07/26/18 [Rx Last Taken Unknown] naproxen 500 mg tablet 500 mg PO BID PRN #20 tabs 08/24/18 [Rx Last Taken Unknown] lisinopril 10 mg tablet 10 mg PO DAILY 09/12/19 [History Last Taken Unknown] simvastatin 40 mg tablet 20 mg PO QHS cholesterol 09/12/19 [History Last Taken Unknown] Allergy/AdvReac Type Severity Reaction Status Date / Time No Known Allergies Allergy Verified 07/02/23 10:42 Family History Other Cancer Heart disease Seizures Social History Smoking Status: Never smoker ROS ROS ED Constitutional Constitutional ED: Denies chills or fever(s) Eyes Eyes: Reports as per HPI and eye pain ENT ENT ED: Denies ear pain, rhinorrhea or sore throat Neurologic Neurologic: Denies headache(s), paresthesias or weakness EXAM Physical Exam Const Vital Signs: 07/02/23 10:41 Temperature 97.2 F L Temperature Source Temporal Pulse Rate 71 Respiratory Rate 14 Blood Pressure 131/85 H Blood Pressure Mean 100 Pulse Ox 98 Oxygen Delivery Method Room Air Positive well nourished and well developed General Appearance ED: well developed and NAD HEENT atraumatic; Negative for tenderness Mouth ED: Yes oral and palatal mucosa normal and Yes lips normal Mouth: oral and palatal mucosa normal and lips normal Eyes PERRL and EOMs intact bilaterally Eyes Narrative: Slit-lamp exam performed. There is no foreign body. There appears to be a sm all 2-3 mm in diameter area of burned conjunctive a at the 6:30 area just caudal to the cornea and not including it. The area seems to be brown in discoloration and superficial. Stained with fluorescein, the cornea is benign, the anterior chamber is deep and quiet, and there is no Leeann sign. Neuro oriented x3, CN's II-XII intact bilaterally and gait normal Sensorium / Orientation: alert Skin Lesions: no lesions Rashes: no rashes MDM MDM MDM Narrative Medical decision making narrative: Visual acuity noted, and normal with correction. 20/40 right, 20/20 left, 20/20 bilateral. Patient was given bacitracin/polymyxin ophthalmic here as well as instructions for using at home 2-3 times daily, follow-up as needed, I suspect this will heal spontaneously in 2 to 3 days, I do not think it is any work restrictions, and he can follow-up as needed we discussed reasons to return he is comfortable with that plan. Discharge Plan Triage Chief Complaint: Eye Problem ED Provider: Noah Coulter Dx/Rx/DC Orders Clinical Impression: Burn of conjunctiva, left Instructions: ED Eye Exposure, Chemical Prescriptions: No Action omeprazole 20 mg capsule,delayed release(DR/EC) 20 mg PO DAILY Qty: 30 0RF insulin lispro 100 unit/mL insulin pen 10 unit SC TIDCM Qty: 15 5RF insulin glargine 100 unit/mL (3 mL) insulin pen 20 unit SC QHS Qty: 15 6RF (DME) pen needle, diabetic [Comfort EZ Pen [place]] 32 gauge x 3/16 needle See Dose Instructions .ROUTE .MEDSUPPLY Qty: 150 6RF Dose Instruction: As directed Rx Instructions: As directed ergocalciferol (vitamin D2) [Drisdol] 50,000 unit capsule 50,000 unit PO QWEEK Qty: 4 6RF (DME) True Metrix Glucose Test Strip strip See Dose Instructions .ROUTE .MEDSUPPLY Qty: 150 11RF Dose Instruction: As directed Rx Instructions: As directed 4-5 times daily (DME) FreeStyle Estrella 14 Day Sensor kit See Dose Instructions .ROUTE .MEDSUPPLY Qty: 1 11RF Dose Instruction: As directed Rx Instructions: As directed paroxetine HCl 20 MG tablet 20 mg PO DAILY 0RF naproxen 500 MG tablet 500 mg PO BID PRN Qty: 20 0RF lisinopril 10 MG tablet 10 mg PO DAILY Patient Comments: TAKE 1 TABLET DAILY simvastatin 40 MG tablet 20 mg PO QHS Stand Alone Forms: Work Status Form Primary Care Provider: Care Physician,No Primary Referrals: Corporate,Care [Group of Physicians] - As Needed Care Physician,No Primary [Primary Care Provider] - Activity Restrictions/Additional Instructions: Should heal in 2 to 3 days, use the tube of eye ointment to place a small ribbon and the left eye 2 or 3 times per day as needed for discomfort. Disposition Disposition: Home, Self Care
[2023-07-02] MEDS: Neomycin/Bacitracin/Polymyxin Opth. Ointment 1 APPLIC LEFT EYE (11:53)
== END 2023-07-02 12:21 | disposition home or self-care (01) ==
LOC: ED 12:15
PROVIDERS: Emergency Provider Emergency Medicine; PCP Nurse Practitioner Family; Visit Provider Emergency Medicine
DX: T26.12XA Burn of cornea and conjunctival sac, left eye, initial encounter (principal); E11.9 Type 2 diabetes mellitus without complications; X10.2XXA Contact with fats and cooking oils, initial encounter
CPT/HCPCS: 99283

== ENCOUNTER 2024-03-05 11:30 | Emergency (ER) | payer MEDICAID, SELFPAY ==
[2024-03-05 11:31] VITALS: BP 99/83; PULSE 97; RESP 16; TEMP 36.8; O2SAT 95; BMI 24.1
--- NOTE | 2024-03-05 13:17 | RAD_ITS ---
STUDY: X-RAY - LEFT HAND REASON FOR EXAM: Male, 28 years old. Puncture wound. TECHNIQUE: 3 view(s) of the hand. COMPARISON: None. FINDINGS: Normal radiocarpal articulation. Normal distal radioulnar joint. Normal visualized carpal bones. Normal carpal articulations Normal carpometacarpal articulation of the thumb. Normal second through fifth carpometacarpal joints. Normal metacarpi. Normal metacarpophalangeal joint of the thumb. Normal interphalangeal joint of the thumb. Normal proximal and distal phalanges of the thumb. Normal metacarpophalangeal joints of the second through fifth fingers. Normal proximal and distal interphalangeal joints of the second through fifth fingers. Normal phalanges of the second through fifth fingers. No radiopaque foreign body is seen. RAD/Hand Min 3 Views IMPRESSION: No fractures present. No radiopaque foreign body is seen. Electronically Signed: Maximilian Burton MD at 14:06 EDT ,
--- NOTE | 2024-03-05 13:20 | EX.ED.UPPERE ---
HPI History of Present Illness Chief Complaint: Upper Extremity Injury Narrative Narrative: 28-year-old male presenting with left hand pain. He sustained a small puncture wound to his left hand in the webspace between the first and second digits. He states he was moving and will card. Bleeding is well-controlled. [id number]. Last tetanus unknown. [facility] Medical History Type 2 diabetes mellitus Home Medications ?Medication ?Instructions ?Recorded ?Last Taken ?Type paroxetine HCl 20 mg tablet 20 mg PO DAILY 06/02/18 03/05/24 Rx insulin glargine 100 unit/mL (3 20 unit (0.2 mL) subcut QHS #15 mL 07/03/18 03/04/24 Rx mL) subcutaneous pen insulin lispro 100 unit/mL 10 unit (0.1 mL) subcut TIDCM #15 07/03/18 03/05/24 Rx subcutaneous pen mL omeprazole 20 mg capsule,delayed 20 mg PO DAILY gerd #30 caps 07/03/18 03/05/24 Rx release pen needle, diabetic 32 gauge x #150 ea 07/03/18 Unknown Rx 3/16 (Comfort EZ Pen [place]) blood sugar diagnostic (True #150 ea 07/18/18 Unknown Rx Metrix Glucose Test Strip) FreeStyle Estrella 14 Day Sensor #1 ea 07/26/18 Unknown Rx (flash glucose sensor) naproxen 500 mg tablet 500 mg PO BID PRN #20 tabs 08/24/18 03/05/24 Rx lisinopril 10 mg tablet 10 mg PO DAILY 09/12/19 03/05/24 History simvastatin 40 mg tablet 20 mg PO QHS cholesterol 09/12/19 03/04/24 History albuterol sulfate 90 mcg/actuation 1 puff inhalation Q4H PRN PRN 03/05/24 03/05/24 History aerosol inhaler wheezing buspirone 15 mg tablet 15 mg PO TID 03/05/24 03/05/24 History fluoxetine 40 mg capsule 40 mg PO DAILY 03/05/24 03/05/24 History fluticasone propionate 250 1 inh inhalation BID 03/05/24 03/05/24 History mcg/actuation blister powder for inhalation loratadine 10 mg tablet 10 mg PO DAILY 03/05/24 03/05/24 History tizanidine 4 mg tablet 4 mg PO Q8 03/05/24 03/05/24 History Allergy/AdvReac Type Severity Reaction Status Date / Time No Known Allergies Allergy Verified 03/05/24 11:31 Family History Other Cancer Heart disease Seizures Social History Smoking Status: Never smoker ROS ROS ED Constitutional Constitutional ED: Denies chills, fever(s) or sweats Eyes Eyes: Denies blurry vision or change in vision ENT ENT ED: Denies ear pain or sore throat Cardiovascular Cardiovascular: Denies chest pain, palpitations or racing heartbeat Respiratory/Chest Respiratory/Chest: Denies cough, dyspnea or sputum Gastrointestinal Gastrointestinal: Denies abdominal pain, constipation, diarrhea, nausea or vomiting Genitourinary Genitourinary ED: Denies dysuria, hematuria or urinary frequency Musculoskeletal Musculoskeletal: Denies arthralgias, myalgias or neck pain Integumentary Reports other; Denies abscess, Abrasions or rash Neurologic Neurologic: Denies headache(s), paresthesias or weakness Psychiatric Psychiatric: Denies anxiety, depression, suicidal ideation or suicidal thoughts Endocrine Endocrinology: Denies polydipsia or polyuria EXAM Physical Exam Const Vital Signs: 03/05/24 11:31 Temperature 98.2 F Temperature Source Temporal Pulse Rate 97 Respiratory Rate 16 Blood Pressure 99/83 H Blood Pressure Mean 88 Pulse Ox 95 Oxygen Delivery Method Room Air Positive well nourished General Appearance ED: NAD HEENT Reports moist mucous membranes Eyes PERRL and EOMs intact bilaterally Resp normal respiratory effort Cardio regular rate and regular rhythm Extremity Extremity Narrative: Neurovascular intact with cap refill to all 5 fingers. Motor strength 5/5. Skin Skin Narrative: Puncture wound to webspace of left hand between the first and second digits. No active bleeding. MDM MDM MDM Narrative Medical decision making narrative: Patient presenting with puncture wound to the left hand. He is unsure how deep it went. He states it is painful. He will be given Naprosyn 40 mg. Let was applied to his wound. X-ray was obtained of the left hand which interpreted by myself shows no acute bony injury or subcutaneous emphysema. Patient neurovascular intact. Tetanus was updated today. Wound was copiously cleaned with Shur-Clens. 2 cc of lidocaine without epinephrine was instilled locally around the wound. Wound was copiously irrigated with sterile saline. One 4-0 Ethilon suture was placed with good approximation of wound margins. Patient tolerated procedure well. Wound care and return precautions discussed. Impression: 1. 0.50 cm puncture wound Lab Data Attestation: I reviewed the patient's lab results. Discharge Plan Triage Chief Complaint: Upper Extremity Injury ED Provider: Luis Tineo Dx/Rx/DC Orders Instructions: ED Laceration, Hand: All Closures Prescriptions: No Action omeprazole 20 mg capsule,delayed release(DR/EC) 20 mg PO DAILY Qty: 30 0RF insulin lispro 100 unit/mL insulin pen 10 unit SC TIDCM Qty: 15 5RF insulin glargine 100 unit/mL (3 mL) insulin pen 20 unit SC QHS Qty: 15 6RF (DME) pen needle, diabetic [Comfort EZ Pen [place]] 32 gauge x 3/16 needle See Dose Instructions .ROUTE .MEDSUPPLY Qty: 150 6RF Dose Instruction: As directed Rx Instructions: As directed (DME) True Metrix Glucose Test Strip strip See Dose Instructions .ROUTE .MEDSUPPLY Qty: 150 11RF Dose Instruction: As directed Rx Instructions: As directed 4-5 times daily (DME) FreeStyle Estrella 14 Day Sensor kit See Dose Instructions .ROUTE .MEDSUPPLY Qty: 1 11RF Dose Instruction: As directed Rx Instructions: As directed paroxetine HCl 20 MG tablet 20 mg PO DAILY 0RF naproxen 500 MG tablet 500 mg PO BID PRN Qty: 20 0RF lisinopril 10 MG tablet 10 mg PO DAILY Patient Comments: TAKE 1 TABLET DAILY simvastatin 40 MG tablet 20 mg PO QHS fluoxetine 40 mg capsule 40 mg PO DAILY tizanidine 4 mg tablet 4 mg PO Q8 albuterol sulfate 90 mcg/actuation HFA aerosol inhaler 1 puff inhalation Q4H PRN PRN (Reason: wheezing) fluticasone propionate 250 mcg/actuation blister with device 1 inh inhalation BID loratadine 10 mg tablet 10 mg PO DAILY buspirone 15 mg tablet 15 mg PO TID Primary Care Provider: Yvonne Coles NP Referrals: Yvonne Coles NP, [facility] [Primary Care Provider] - Print Language: Chinese Disposition Disposition: Home, Self Care Discharge Date/Time: 03/05/24 14:15
[2024-03-05] MEDS: Diphth,Pertuss(Acell),Tet Vac 0.5 ML Vial IM (13:36)
[2024-03-05] MEDS: Lidocaine 1% (20 ml mdv) 20 ML Vial INFILT (13:40)
[2024-03-05] MEDS: Naproxen 500 MG Tablet PO (13:40)
[2024-03-05] MEDS: Lidocaine/Epi/Tetracaine 50 ML 1 APPLIC TOPICAL (13:49)
[2024-03-05 14:14] VITALS: BP 112/84; PULSE 68; RESP 20; TEMP 36.9; O2SAT 99
== END 2024-03-05 14:15 | disposition home or self-care (01) ==
PROVIDERS: Emergency Provider Student in an Organized Health Care Education/Training Program; PCP Nurse Practitioner Family; Visit Provider Student in an Organized Health Care Education/Training Program
DX: S61.432A Puncture wound without foreign body of left hand, initial encounter (principal); E11.9 Type 2 diabetes mellitus without complications; Z79.4 Long term (current) use of insulin; Z79.899 Other long term (current) drug therapy; X58.XXXA Exposure to other specified factors, initial encounter; Z23 Encounter for immunization
CPT/HCPCS: 73130; 90471; 90715; 99283

== ENCOUNTER 2025-05-07 11:59 | Emergency (ER) | payer MEDICAID, SELFPAY ==
[2025-05-07 12:00] VITALS: BP 124/78; PULSE 110; RESP 22; TEMP 36.9; O2SAT 95; BMI 21.4
--- NOTE | 2025-05-07 12:11 | EKG12_ITS ---
Test Reason : SOB Blood Pressure : */* mmHG Vent. Rate : 115 BPM Atrial Rate : 115 BPM P-R Int : 122 ms QRS Dur : 74 ms QT Int : 330 ms P-R-T Axes : 82 87 77 degrees QTcB Int : 456 ms Sinus tachycardia Right atrial enlargement Borderline ECG Confirmed by HANNAH KATZ, GINGER ([id number]), market editor MALA MCNEILL ([id number]) on 05/08/2025 6:01:12 AM Referred By: Confirmed By: GINGER YOUNG MD
--- NOTE | 2025-05-07 12:20 | ED.VIS.DYS ---
HPI History of Present Illness Chief Complaint: Asthma Detail of Chief Complaint: Shortness of breath Informant: patient Narrative Narrative: Patient presents to the emergency department with concern for an asthma attack. Patient states that he woke up this morning and felt short of breath and was wheezing so he started hitting his inhaler multiple times. 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 Patient states that yesterday started sneezing and having a little bit of a sore throat. He said a mild cough. Denies fever. Denies sick contacts. Complaining of some tightness in his left lung. Cough nonproductive. [facility] Medical History (Updated 05/07/25 @ 14:[address] Bird Ramos, DO) Asthma Type 2 diabetes mellitus Home Medications ?Medication ?Instructions ?Recorded ?Last Taken ?Type paroxetine HCl 20 mg tablet 20 mg PO DAILY 06/02/18 03/05/24 Rx insulin glargine 100 unit/mL (3 20 unit (0.2 mL) subcut QHS #15 mL 07/03/18 03/04/24 Rx mL) subcutaneous pen insulin lispro 100 unit/mL 10 unit (0.1 mL) subcut TIDCM #15 07/03/18 03/05/24 Rx subcutaneous pen mL omeprazole 20 mg capsule,delayed 20 mg PO DAILY gerd #30 caps 07/03/18 03/05/24 Rx release pen needle, diabetic 32 gauge x #150 ea 07/03/18 Unknown Rx 3/16 (Comfort EZ Pen [place]) blood sugar diagnostic (True #150 ea 07/18/18 Unknown Rx Metrix Glucose Test Strip) FreeStyle Estrella 14 Day Sensor #1 ea 07/26/18 Unknown Rx (flash glucose sensor) naproxen 500 mg tablet 500 mg PO BID PRN #20 tabs 08/24/18 03/05/24 Rx lisinopril 10 mg tablet 10 mg PO DAILY 09/12/19 03/05/24 History simvastatin 40 mg tablet 20 mg PO QHS cholesterol 09/12/19 03/04/24 History albuterol sulfate 90 mcg/actuation 1 puff inhalation Q4H PRN PRN 03/05/24 03/05/24 History aerosol inhaler wheezing buspirone 15 mg tablet 15 mg PO TID 03/05/24 03/05/24 History fluoxetine 40 mg capsule 40 mg PO DAILY 03/05/24 03/05/24 History fluticasone propionate 250 1 inh inhalation BID 03/05/24 03/05/24 History mcg/actuation blister powder for inhalation loratadine 10 mg tablet 10 mg PO DAILY 03/05/24 03/05/24 History tizanidine 4 mg tablet 4 mg PO Q8 03/05/24 03/05/24 History prednisone 20 mg tablet 20 mg PO BID #8 tabs 05/07/25 Unknown Rx Allergy/AdvReac Type Severity Reaction Status Date / Time No Known Allergies Allergy Verified 05/07/25 12:02 Family History Other Cancer Heart disease Seizures Social History Smoking Status: Never smoker ROS ROS ED Review of Systems ROS Unobtainable: other Constitutional Constitutional ED: Reports lethargy; Denies chills, fever(s), sweats or weight loss Eyes Eyes: Denies blurry vision, change in vision or diplopia ENT ENT ED: Reports sore throat; Denies rhinorrhea Cardiovascular Cardiovascular: Denies chest pain, orthopnea or racing heartbeat Respiratory/Chest Respiratory/Chest: Reports cough and dyspnea; Denies dyspnea on exertion, orthopnea or sputum Gastrointestinal Gastrointestinal: Denies abdominal pain, diarrhea, nausea or vomiting Genitourinary Genitourinary ED: Denies dysuria, hematuria or urinary frequency Musculoskeletal Musculoskeletal: Denies arthralgias, back pain, myalgias or neck pain Integumentary Denies abscess, Abrasions or rash Neurologic Neurologic: Denies headache(s) or weakness Psychiatric Psychiatric: Denies anxiety, depression or suicidal thoughts Endocrine Endocrinology: Denies polydipsia, polyphagia or polyuria Hematologic/Lymphatic Hematologic/Lymphatic: Denies easy bleeding, easy bruising or lymphadenopathy Allergic/Immunologic Allergic/Immunologic ED: Denies mouth swelling, tongue swelling or urticaria EXAM Physical Exam Const Vital Signs: 05/07/25 12:00 05/07/25 12:41 05/07/25 13:30 Temperature 98.5 F Temperature Source Oral Pulse Rate 110 H 114 H 102 H Respiratory Rate 22 H 28 H 18 Respiratory Pattern Tachypnea Blood Pressure 124/78 H 134/83 H Blood Pressure Mean 93 100 Pulse Ox 95 97 Oxygen Delivery Method Room Air Nasal Cannula Oxygen Flow Rate (L/min) 2 Positive well nourished and well developed General Appearance ED: well developed and NAD HEENT Reports TM's clear and moist mucous membranes normocephalic and atraumatic; Negative for trauma or tenderness Tympanic Membrane ED: Yes TM's clear Eyes PERRL and EOMs intact bilaterally General Eye ED: Negative for pale conjunctiva or scleral icterus Neck no lymphadenopathy, supple and no JVD General: Negative for tenderness Chest Wall inspection of chest normal and palpation of chest normal Chest: Negative for tenderness Resp normal respiratory effort and No clear to auscultation bilaterally Resp Narrative: No conversational dyspnea on exam. No significant tachypnea. No accessory muscle use or retractions. He does have expiratory wheezes throughout both lung bases. Effort and Inspection: Negative for respiratory distress or pain with movement Auscultation: wheezes; Negative for rhonchi or diminished lung sounds Cardio regular rate, regular rhythm, S1 normal heart sound, S2 normal heart sound and no murmurs Peripheral Pulses: pulses 2+ throughout GI normal to inspection, nondistended, normoactive bowel sounds, soft to palpation, non-tender, non-distended and no masses Back/Spine no CVA tenderness and no thoracic nor lumbar tenderness Extremity normal to inspection General Extremety ED: Negative for edema General Extremity: Negative for edema Neuro oriented x3, CN's II-XII intact bilaterally, no sensory deficits noted and gait normal Sensorium / Orientation: awake, alert, oriented to person, oriented to place and oriented to time Motor Exam: strength 5/5 throughout and strength abnormal Psych mental status grossly normal Skin no rashes or lesions noted and no wounds MDM MDM MDM Narrative Medical decision making narrative: Patient presents with URI symptoms with asthma exacerbation. Discussed obtaining COVID flu and RSV testing but noting that this would likely not change treatment and he is comfortable not obtaining any type of viral studies. Will obtain a chest x-ray. EKG was done prior to my evaluating the patient with protocol and showed a sinus rhythm with ventricular rate of 116 bpm with right atrial enlargement and no acute ST segment changes. Patient will be treated with DuoNeb aerosol as well as prednisone. Will obtain a 1 view chest x-ray. Will reevaluate. Patient felt markedly improved after treatment with DuoNeb. He was given prednisone. Suspect likely viral URI with flareup of his asthma symptoms. Will treat with prednisone and will prescribe new albuterol inhaler. Advised return if increasing shortness of breath or condition worsen anyway Radiography Diagnostic Testing: Clinical Impression(s) from Imaging Studies Chest X-Ray 05/07/25 13:15 IMPRESSION: No Acute Findings. Reading Location: [facility] 1 view chest x-ray obtained interpreted by myself as no evidence of infiltrate or pneumothorax or acute disease process. Radiology in agreement. EKG Initial EKG: Attestation: I personally reviewed and interpreted this EKG as follows: Comments: Sinus tachycardia with ventricular rate of 115 bpm with right atrial enlargement Discharge Plan Triage Chief Complaint: Asthma ED Provider: Bird Ramos Dx/Rx/DC Orders Clinical Impression: Asthmatic bronchitis Instructions: ED Bronchitis with Wheezing (Adult) Prescriptions: New prednisone 20 mg tablet 20 mg PO BID Qty: 8 0RF No Action omeprazole 20 mg capsule,delayed release(DR/EC) 20 mg PO DAILY Qty: 30 0RF insulin lispro 100 unit/mL insulin pen 10 unit SC TIDCM Qty: 15 5RF insulin glargine 100 unit/mL (3 mL) insulin pen 20 unit SC QHS Qty: 15 6RF (DME) pen needle, diabetic [Comfort EZ Pen [place]] 32 gauge x 3/16 needle See Dose Instructions .ROUTE .MEDSUPPLY Qty: 150 6RF Dose Instruction: As directed Rx Instructions: As directed (DME) True Metrix Glucose Test Strip strip See Dose Instructions .ROUTE .MEDSUPPLY Qty: 150 11RF Dose Instruction: As directed Rx Instructions: As directed 4-5 times daily (DME) FreeStyle Estrella 14 Day Sensor kit See Dose Instructions .ROUTE .MEDSUPPLY Qty: 1 11RF Dose Instruction: As directed Rx Instructions: As directed paroxetine HCl 20 MG tablet 20 mg PO DAILY 0RF naproxen 500 MG tablet 500 mg PO BID PRN Qty: 20 0RF lisinopril 10 MG tablet 10 mg PO DAILY Patient Comments: TAKE 1 TABLET DAILY simvastatin 40 MG tablet 20 mg PO QHS fluoxetine 40 mg capsule 40 mg PO DAILY tizanidine 4 mg tablet 4 mg PO Q8 albuterol sulfate 90 mcg/actuation HFA aerosol inhaler 1 puff inhalation Q4H PRN PRN (Reason: wheezing) fluticasone propionate 250 mcg/actuation blister with device 1 inh inhalation BID loratadine 10 mg tablet 10 mg PO DAILY buspirone 15 mg tablet 15 mg PO TID Primary Care Provider: Yvonne Coles NP Referrals: Yvonne Coles NP, [facility] [Primary Care Provider, Family Practice] Print Language: German Disposition Disposition: Home, Self Care
[2025-05-07 12:41] VITALS: PULSE 114; RESP 28
--- NOTE | 2025-05-07 13:15 | RAD_ITS ---
PROCEDURE: CHEST 1 VIEW (PORTABLE) 05/07/2025 REASON FOR EXAM: COUGH, WHEEZING TECHNIQUE: Frontal view of the chest. COMPARISON: None FINDINGS: Hardware: EKG electrodes are seen. Heart: The heart size is normal. Lungs: The lungs are clear. Bones: The bones are unremarkable. Other: RAD/Chest 1 View (Portable) IMPRESSION: No Acute Findings. Reading Location: [place] [id number]
[2025-05-07 13:30] VITALS: BP 134/83; PULSE 102; RESP 18; O2SAT 97
[2025-05-07] MEDS: Albuterol Sulfate 8 gm Inhaler (60 puffs) 2 PUFF INHALATION (14:25)
[2025-05-07 14:26] VITALS: O2SAT 95
== END 2025-05-07 14:27 | disposition home or self-care (01) ==
PROVIDERS: Emergency Provider Emergency Medicine; PCP Nurse Practitioner Family; Visit Provider Emergency Medicine
DX: J45.909 Unspecified asthma, uncomplicated (principal); E11.9 Type 2 diabetes mellitus without complications
CPT/HCPCS: 71045; 93005; 94640; 99282